=== PATIENT | female | born 1980 | race Caucasian/White ===

== ENCOUNTER 2019-07-10 12:02 | Emergency (ER) | payer OTHER ==
[~2019-07-10] VITALS: Ht 170.2 cm; Wt 111.6 kg
[2019-07-10 12:15] VITALS: BP 136/76
--- NOTE | 2019-07-10 12:19 | NUR ---
BIB DAUGHTER W/ C/O CHRONIC LT KNEE PAIN X 1 YR. DENIES INJURY. TOOK IBUPROFEN YESTERDAY W/O RELIEF HX/MEDS: DENIES
[2019-07-10] MEDS ORDERED: IBUPROFEN 800 MG TAB PO ONE (12:20)
--- NOTE | 2019-07-10 13:58 | NUR ---
Patient discharged with v/s stable. Written and verbal after care instructions given and explained. Patient alert, oriented and verbalized understanding of instructions. Ambulatory with steady gait, accompanied by daughter. All questions addressed prior to discharge. ID band removed. Patient advised to follow up with PMD. Rx of IBUPROFEN given. Patient educated on indication of medication including possible reaction and side effects. Opportunity to ask questions provided and answered.
[2019-07-10 14:00] VITALS: BP 109/64
== END 2019-07-10 13:58 | disposition home or self-care (01) ==
LOC: MED 12:02
DX: M25.562 Pain in left knee (principal)
CPT/HCPCS: 93971; 99284; Q0092